=== PATIENT | female | born 1995 | race Hispanic/Latino ===

== ENCOUNTER 2020-04-10 10:26 | Day surgery (SDC) | payer OTHER ==
[2020-04-10] VITALS (16 sets, daily range): BP systolic 108–132; BP diastolic 50–79
[~2020-04-10] VITALS: Ht 175.3 cm; Wt 89.8 kg
[2020-04-10 08:30] LABS: BASOPHILS % (AUTO) 0.3 % (0.0-5.0); EOSINOPHILS % (AUTO) 2.4 % (0.0-8.0); HEMATOCRIT 43.1 % (36-48); LYMPHOCYTES % (AUTO) 28.4 % (21.0-51.0); MEAN CORPUSCULAR HGB CONC 33.6 g/dL (32.0-36.0); MEAN CORPUSCULAR VOLUME 92.1 fL (79-99); MONOCYTES % (AUTO) 8.2 % (3.0-13.0); NEUTROPHILS % (AUTO) 60.4 % (40.0-77.0); PLATELET COUNT (AUTO) 287 K/uL (130-400); RED BLOOD CELL COUNT(AUTO) 4.68 MIL/uL (4.00-5.50); RED CELL DISTRIBUTION WIDTH 12.2 % (11.0-15.5); WHITE BLOOD COUNT (AUTO) 6.6 K/uL (4.8-10.8)
[2020-04-10] MEDS: LACTATED RINGERS 1000ML 1,000 ML IV SCH ×2 (08:32→09:02)
[~2020-04-10 10:26] MED LIST: CEFAZOLIN SODIUM 1 GM VIAL IVP SCH; DEXAMETHASONE SOD PHOSPHATE 10MG/ML 1ML VIAL ONE; FENTANYL CITRATE PF 50 MCG/1 ML 2ML VIAL ONE; LIDOCAINE PF 2% 5ML ABBOJECT ONE; MEPERIDINE-PF 25 MG/ML SYG ONE; MIDAZOLAM HCL 1 MG/ML 2ML VIAL ONE; ONDANSETRON HCL 4 MG/2 ML VIAL ONE; PROPOFOL 10 MG/ML 20ML VIAL IV ONE; ROCURONIUM 10MG/1ML SYR 10 MG/ML ML ONE; SUCCINYLCHOLINE CHLORIDE 20 MG/ML 10 ML VIAL ONE
== END 2020-04-10 10:40 | disposition home or self-care (01) ==
LOC: DAH 10:26
PROVIDERS: ATTEND Obstetrics & Gynecology
DX: T19.2XXA Foreign body in vulva and vagina, initial encounter (principal); Z20.822 Contact with and (suspected) exposure to COVID-19; N89.9 Noninflammatory disorder of vagina, unspecified; J45.909 Unspecified asthma, uncomplicated; Z82.49 Family history of ischemic heart disease and other diseases of the circulatory system; Z83.49 Family history of other endocrine, nutritional and metabolic diseases; X58.XXXA Exposure to other specified factors, initial encounter
CPT/HCPCS: 36415; 57415; 84703; 85025; 86850; 86900; 86901; 87426; A4215; A4216; A4221; A4222; A4223 ×2; A4315; A4663; A4930; J0330; J1100; J2001; J2175; J2250; J2405; J2704; J3010; J7120 ×2; U0003; J0690